=== PATIENT | female | born 1965 | race Caucasian/White ===

== ENCOUNTER 2016-06-22 07:48 | Day surgery (SDC) | payer OTHER ==
[2016-06-22] MEDS ORDERED: NS 1,000 ML ONE (08:08)
[2016-06-22 09:21] LABS: HEMATOCRIT 37.4 % (37.0-47.0); HEMOGLOBIN 12.7 g/dL (12.0-16.0); MCH 30.8 PG (27-31); MCV 90.6 FL (81-99); MPV 10.2 FL (7.4-10.4); RBC 4.13 XMIL (4.2-5.4)
[2016-06-22 09:37] LABS: AGAP 12; BUN 10 mg/dL (8-22); CALCIUM 8.6 mg/dL (8.8-10.2); CHLORIDE 106 mmol/L (98-107); COSMO 283; POTASSIUM 4.1 mmol/L (3.5-5.1); SODIUM 141 mmol/L (136-145); TCO2 23 mmol/L (25-35)
[2016-06-22 09:42] LABS: INR 1.04; PROTIME 10.6 Seconds (9.2-11.7)
[2016-06-22] MEDS ORDERED: XYLOCAINE 4% TOPICAL SOLUTION ONE (10:22)
[2016-06-22] MEDS ORDERED: HURRICAINE SPRAY (DOSE) ONE (10:22)
[2016-06-22] MEDS ORDERED: XYLOCAINE 2% VISCOUS ONE (10:22)
[2016-06-22] MEDS ORDERED: SODIUM CHLORIDE 0.9% 10 ML ONE (10:22)
[2016-06-22] MEDS ORDERED: DIPRIVAN 1% ONE (11:17)
[2016-06-22] MEDS ORDERED: XYLOCAINE-MPF 2% ONE (11:29)
[2016-06-22 11:40] VITALS: BP 114/55
--- NOTE | 2016-06-24 20:15 | Transesophageal Echocardiogram ---
DATE: 06/22/2016 INDICATION: Aortic insufficiency, tricuspid regurgitation, mitral regurgitation. PROCEDURE IN DETAIL: Ms. Trinh was brought to the catheterization suite in fasting state. Informed consent was obtained. Prepped in usual fashion including viscous lidocaine and Hurricaine spray for oropharyngeal anesthesia. She is sedated via anesthesia. After appropriate sedation, the SANDRA probe was passed without difficulty. Images were obtained in multiple planes. At the conclusion of the procedure, the probe was removed. No apparent complications. FINDINGS: 1. The right atrium appears normal in size. There is no evidence of shunting across the atrial septum via injection of agitated saline contrast as well as color Doppler evaluation. 2. There is the suggestion of severe tricuspid regurgitation. 3. Normal RV size and systolic function. 4. No significant pulmonic insufficiency. 5. Left atrium appears normal in size. No evidence of clot in the left atrium or left atrial appendage. 6. There is no mitral valve prolapse. Moderate mitral regurgitation. 7. Normal LV size with no evidence of left ventricular hypertrophy. Normal LV systolic function with no evidence of segmental wall motion abnormalities. 8. Aortic valve is trileaflet, it opens well. There is the suggestion of moderate to severe aortic insufficiency on this study. The vena contracta does appear to be around 8 mm in width, however, this was an extremely difficult study and it was difficult to measure the vena contracta. Could consider an alternative modality to evaluate the AI such as cardiac MRI. No evidence of stenosis. 9. There is mild atherosclerosis in the descending thoracic aorta. 10. No pericardial effusion seen.
== END 2016-06-22 11:40 | disposition home or self-care (01) ==
LOC: CATH 07:48
PROVIDERS: ATTEND Internal Medicine Cardiovascular Disease
DX: I08.3 Combined rheumatic disorders of mitral, aortic and tricuspid valves (principal); R06.02 Shortness of breath; I87.2 Venous insufficiency (chronic) (peripheral); G47.34 Idiopathic sleep related nonobstructive alveolar hypoventilation; Z99.81 Dependence on supplemental oxygen; R60.9 Edema, unspecified; E66.9 Obesity, unspecified; Z68.31 Body mass index [BMI] 31.0-31.9, adult; G47.33 Obstructive sleep apnea (adult) (pediatric); E78.5 Hyperlipidemia, unspecified; E03.9 Hypothyroidism, unspecified; F41.9 Anxiety disorder, unspecified; K21.9 Gastro-esophageal reflux disease without esophagitis; M79.7 Fibromyalgia; G89.29 Other chronic pain; M54.9 Dorsalgia, unspecified; Z79.899 Other long term (current) drug therapy; Z79.1 Long term (current) use of non-steroidal anti-inflammatories (NSAID); Z91.19 Patient's noncompliance with other medical treatment and regimen; F17.210 Nicotine dependence, cigarettes, uncomplicated
CPT/HCPCS: 80048; 83735; 85027; 85610; 93312; J7030